=== PATIENT | female | born 1965 | race Asian ===

== ENCOUNTER 2020-03-10 13:46 | Emergency (ER) | payer MEDICARE, MEDICAID ==
[~2020-03-10] VITALS: Ht 157.5 cm; Wt 65.9 kg
[~2020-03-10 13:46] MED LIST: LISI10TA7 PO
[2020-03-10] MEDS ORDERED: ARIP2 PO (13:54)
[2020-03-10] MEDS ORDERED: ATOR10TA84 PO (13:54)
[2020-03-10] MEDS ORDERED: ACETAMINOPHEN 325 MG TABLET PO ONE (14:30)
[2020-03-10] MEDS ORDERED: TRAZ150 PO (14:34)
[2020-03-10] MEDS ORDERED: DULO20CA27 PO (14:34)
[2020-03-10] MEDS ORDERED: ARIP15TA2 PO (14:34)
[2020-03-10] MEDS ORDERED: SIMV-260 PO (14:34)
[2020-03-10] MEDS ORDERED: ASPI-1111 PO (14:34)
[2020-03-10 16:30] VITALS: BP 149/86
== END 2020-03-10 17:11 | disposition home or self-care (01) ==
LOC: EMS 13:57
DX: S80.01XA Contusion of right knee, initial encounter (principal); M79.641 Pain in right hand; I10 Essential (primary) hypertension; Z88.6 Allergy status to analgesic agent; Z79.899 Other long term (current) drug therapy; W01.0XXA Fall on same level from slipping, tripping and stumbling without subsequent striking against object, initial encounter; Y93.89 Activity, other specified; Y92.89 Other specified places as the place of occurrence of the external cause; Y99.8 Other external cause status
CPT/HCPCS: 70486; 73130-TC; 73562-TC; Z7502; Z7610